=== PATIENT | female | born 2000 | race Caucasian/White ===

== ENCOUNTER → 2022-03-06 09:08 | Outpatient (BNVA) | payer SELFPAY | DX: Z02.83 Encounter for blood-alcohol and blood-drug test (principal) ==

== ENCOUNTER → 2022-03-21 10:11 | Outpatient (BNVA) | payer SELFPAY | DX: Z02.83 Encounter for blood-alcohol and blood-drug test (principal) ==

== ENCOUNTER → 2024-07-24 09:48 | Outpatient (BNVA) | payer OTHER, SELFPAY | PROVIDERS: Visit Provider Registered Nurse | DX: Z13.89 Encounter for screening for other disorder (principal) | CPT/HCPCS: 86481; 99211 ==